=== PATIENT | female | born 1980 ===

== ENCOUNTER 2018-07-14 22:17 | Emergency (ER) | payer OTHER ==
[2018-07-14 22:46] VITALS: RESP 18
[2018-07-15] MEDS ORDERED: Sodium Chloride 0.9% 1,000 ML IV STA (00:39)
[2018-07-15 01:19] LABS: BASO # 0.1 K/uL (0.0-0.2); BASO % 0.6 % (0.0-2.0); EOS # 0.3 K/uL (0.0-0.7); EOS % 3.1 % (0.0-4.0); HEMOGLOBIN 13.2 g/dL (12.0-16.0); LYMPH # 3.2 K/uL (1.0-4.3); LYMPH % 29.8 % (20.0-40.0); MEAN CELL VOLUME 87.9 fl (81.0-99.0); MEAN CORPUSCULAR HEMOGLOBIN 29.4 pg (27.0-31.0); MEAN CORPUSCULAR HGB CONC 33.4 g/dL (33.0-37.0); MEAN PLATELET VOLUME 8.5 fl (7.2-11.7); MONO # 0.9 K/uL (0.0-0.8); NEUT # 6.4 K/uL (1.8-7.0); NEUT % 58.5 % (50.0-75.0); RBC 4.49 Mil/uL (3.80-5.20); RED CELL DISTRIBUTION WIDTH 12.6 % (11.5-14.5); WHITE BLOOD COUNT 10.9 K/uL (4.8-10.8)
[2018-07-15 01:32] LABS: ALB/GLOB RATIO 1.5 (1.0-2.1); ALBUMIN 4.2 g/dL (3.5-5.0); ALT/SGPT 34 U/L (9-52); AST/SGOT 20 U/L (14-36); BLOOD UREA NITROGEN 18 mg/dl (7-17); CALCIUM 9.5 mg/dL (8.4-10.2); GFR NON-AFRICAN AMERICAN > 60
--- NOTE | 2018-07-15 02:57 | ED PDOC ---
HPI: Headache Time Seen by Provider: 07/15/18 00:03 Chief Complaint (Nursing): Weakness/Neurological Deficit Chief Complaint (Provider): Weakness/Neurological Deficit History Per: Patient History/Exam Limitations: no limitations Onset/Duration Of Symptoms: Days (x1), Gradual (of headache) Additional Complaint(s): 37 years old female presents to ER for evaluation after she woke up this morning feeling anxious and numbness to both lower and upper extremities. Patient reports gradual onset holocephalic headache. She states she had numbness in the past which contributes to her anxiety. Patient reports taking Tylenol around 4 pm with no relief. She denies fever, light sensitivity, nausea, vomiting, neck pain, stiffness, chest pain, palpitations, shortness of breath and history of headache. PMD: None provided Past Medical History Reviewed: Historical Data, Nursing Documentation, Vital Signs Vital Signs: Last Vital Signs Temp 98 F 07/14/18 22:44 Pulse 71 07/14/18 22:44 Resp 18 07/14/18 22:44 BP 133/85 07/14/18 22:44 Pulse Ox 100 07/14/18 22:44 - Medical History PMH: Anxiety Denies: Chronic Kidney Disease - Surgical History Surgical History: No Surg Hx - Family History Family History: States: Unknown Family Hx - Social History Current smoker - smoking cessation education provided: Yes Alcohol: None Drugs: Denies - Home Medications Home Medications: Ambulatory Orders Medication Instructions Recorded Metoclopramide HCl [Reglan] 10 mg PO TID PRN #10 tablet 07/15/18 - Allergies Allergies/Adverse Reactions: Allergies Allergy/AdvReac Type Severity Reaction Status Date / Time No Known Allergies Allergy Verified 07/14/18 22:43 Review of Systems ROS Statement: Except As Marked, All Systems Reviewed And Found Negative Constitutional: Negative for: Fever Eyes: Negative for: Other (Light sensetivity) Cardiovascular: Negative for: Chest Pain, Palpitations Respiratory: Negative for: Shortness of Breath Gastrointestinal: Negative for: Nausea, Vomiting Musculoskeletal: Negative for: Neck Pain Neurological: Positive for: Weakness (to lower and upper extremities), Numbness (to lower and upper extremities), Headache (Holocephalic) Physical Exam - Reviewed Nursing Documentation Reviewed: Yes Vital Signs Reviewed: Yes - Physical Exam Appears: Positive for: Well, No Acute Distress Head Exam: Positive for: ATRAUMATIC, NORMOCEPHALIC Skin: Positive for: Normal Color, Warm, Dry Eye Exam: Positive for: Normal appearance, EOMI, PERRL ENT: Positive for: Normal ENT Inspection Neck: Positive for: Normal, Painless ROM, Supple Cardiovascular/Chest: Positive for: Regular Rate, Rhythm, Chest Non Tender. Negative for: Murmur Respiratory: Positive for: Normal Breath Sounds. Negative for: Respiratory Distress Gastrointestinal/Abdominal: Positive for: Normal Exam, Soft. Negative for: Tenderness Back: Positive for: Normal Inspection. Negative for: L CVA Tenderness, R CVA Tenderness, Vertebral Tenderness Extremity: Positive for: Normal ROM. Negative for: Pedal Edema, Swelling Neurological/Psych: Positive for: Awake, Alert, Oriented (x3), Gait (steady unassisted), Other (Cranial nerves intact) - Laboratory Results Result Diagrams: 07/15/18 01:05 07/15/18 01:05 Lab Results: Total Bilirubin 0.2 mg/dl (0.2-1.3) 07/15/18 01:05 AST 20 U/L (14-36) 07/15/18 01:05 ALT 34 U/L (9-52) 07/15/18 01:05 Alkaline Phosphatase 80 U/L (38-126) 07/15/18 01:05 Total Protein 7.0 G/DL (6.3-8.2) 07/15/18 01:05 Albumin 4.2 g/dL (3.5-5.0) 07/15/18 01:05 Globulin 2.8 gm/dL (2.2-3.9) 07/15/18 01:05 Albumin/Globulin Ratio 1.5 (1.0-2.1) 07/15/18 01:05 - ECG O2 Sat by Pulse Oximetry: 100 (RA) Pulse Ox Interpretation: Normal Medical Decision Making Medical Decision Making: Time: 38 Initial Impression: Initial Plan: --Head CT --CMP --Urine --CBC --Reglan 10 mg IVPB [address] Findings: Normal size of the ventricles and extra-axial spaces for the patient's age. Normal white matter tracts of the supratentorial brain. Normal basal ganglia and thalami. Normal brainstem. Normal cerebellum. There is no demonstrated extra-axial, intraparenchymal, or intraventricular hemorrhage. There are no findings of an acute ischemic infarction. Normal calvarium. There is no demonstrated fracture. Normal soft tissue structures. Normal visualized paranasal sinuses. IMPRESSION: Normal unenhanced CT scan of the brain. 0250 On reevaluation, patient sleeping comfortably, easily arousable and reports complete resolution of headache. Patient instructed to followup with PMD in [facility] and return to ER if symptoms worsen. Scribe Attestation: Documented by Jacey Thompson, acting as a scribe for ZARINA Cardenas. Provider Scribe Attestation: All medical record entries made by the Scribe were at my direction and personally dictated by me. I have reviewed the chart and agree that the record accurately reflects my personal performance of the history, physical exam, medical decision making, and the department course for this patient. I have also personally directed, reviewed, and agree with the discharge instructions and disposition. Disposition - Clinical Impression Clinical Impression: Headache - Patient ED Disposition Is Patient to be Admitted: No - Disposition Referrals: [facility] [Outside] Disposition Time: 02:56 Condition: IMPROVED Additional Instructions: FOLLOW UP WITH PMD FOR FURTHER EVALUATION RETURN TO ED IMMEDIATELY IF SYMPTOMS WORSEN DK SALDAÑA, thank you for letting us take care of you today. Your provider was Manjinder Mcrae MD and you were treated for NUMBNESS ON EXTREMITIES;HEADACHE. The emergency medical care you received today was directed at your acute symptoms. If you were prescribed any medication, please fill it and take as directed. It may take several days for your symptoms to resolve. Return to the Emergency Department if your symptoms worsen, do not improve, or if you have any other problems. Please contact your doctor or call one of the physicians/clinics you have been referred to that are listed on the Patient Visit Information form that is included in your discharge packet. Bring any paperwork you were given at discharge with you along with any medications you are taking to your follow up visit. Our treatment cannot replace ongoing medical care by a primary care provider outside of the emergency department. Thank you for allowing the [facility] team to be part of your care today. If you had an X-Ray or CT scan: A Radiologist will review the ED reading if any change in treatment is needed we will contact you. If you had a blood, urine, or wound culture: It will take several days for the results, if any change in treatment is needed we will contact you. If you had an STI test: It will take 48 hours for the results. Please call after 1 week if you have not heard back. Prescriptions: Metoclopramide HCl [Reglan] 10 mg PO TID PRN #10 tablet PRN Reason: headache or nausea Instructions: Headache, Adult (DC) Forms: [facility] (Amharic) Print Language: ESTONIAN
--- NOTE | 2018-07-15 03:02 | ED PDOC ---
HPI: Headache Time Seen by Provider: 07/15/18 00:03 Chief Complaint (Nursing): Weakness/Neurological Deficit Past Medical History Vital Signs: Last Vital Signs Temp 98 F 07/14/18 22:44 Pulse 71 07/14/18 22:44 Resp 18 07/14/18 22:44 BP 133/85 07/14/18 22:44 Pulse Ox 100 07/14/18 22:44 - Medical History PMH: Anxiety Denies: Chronic Kidney Disease - Home Medications Home Medications: Ambulatory Orders Medication Instructions Recorded Metoclopramide HCl [Reglan] 10 mg PO TID PRN #10 tablet 07/15/18 - Allergies Allergies/Adverse Reactions: Allergies Allergy/AdvReac Type Severity Reaction Status Date / Time No Known Allergies Allergy Verified 07/14/18 22:43 - Laboratory Results Result Diagrams: 07/15/18 01:05 07/15/18 01:05 Lab Results: Total Bilirubin 0.2 mg/dl (0.2-1.3) 07/15/18 01:05 AST 20 U/L (14-36) 07/15/18 01:05 ALT 34 U/L (9-52) 07/15/18 01:05 Alkaline Phosphatase 80 U/L (38-126) 07/15/18 01:05 Total Protein 7.0 G/DL (6.3-8.2) 07/15/18 01:05 Albumin 4.2 g/dL (3.5-5.0) 07/15/18 01:05 Globulin 2.8 gm/dL (2.2-3.9) 07/15/18 01:05 Albumin/Globulin Ratio 1.5 (1.0-2.1) 07/15/18 01:05 - ECG O2 Sat by Pulse Oximetry: 100 Disposition - Clinical Impression Clinical Impression: Headache - Patient ED Disposition Is Patient to be Admitted: No - Disposition Referrals: [facility] [Outside] Disposition: Routine/Home Disposition Time: 02:56 Condition: IMPROVED Additional Instructions: FOLLOW UP WITH PMD FOR FURTHER EVALUATION RETURN TO ED IMMEDIATELY IF SYMPTOMS WORSEN DK SALDAÑA, thank you for letting us take care of you today. Your provider was Manjinder Mcrae MD and you were treated for NUMBNESS ON EXTREMITIES;HEADACHE. The emergency medical care you received today was directed at your acute sym ptoms. If you were prescribed any medication, please fill it and take as directed. It may take several days for your symptoms to resolve. Return to the Emergency Department if your symptoms worsen, do not improve, or if you have any other problems. Please contact your doctor or call one of the physicians/clinics you have been referred to that are listed on the Patient Visit Information form that is included in your discharge packet. Bring any paperwork you were given at discharge with you along with any medications you are taking to your follow up visit. Our treatment cannot replace ongoing medical care by a primary care provider outside of the emergency department. Thank you for allowing the [facility] team to be part of your care today. If you had an X-Ray or CT scan: A Radiologist will review the ED reading if any change in treatment is needed we will contact you. If you had a blood, urine, or wound culture: It will take several days for the results, if any change in treatment is needed we will contact you. If you had an STI test: It will take 48 hours for the results. Please call after 1 week if you have not heard back. Prescriptions: Metoclopramide HCl [Reglan] 10 mg PO TID PRN #10 tablet PRN Reason: headache or nausea Instructions: Headache, Adult (DC) Print Language: BAHAMIAN
[2018-07-15 04:03] VITALS: BP 125/64; PULSE 69; TEMP 97.7; O2SAT 99
--- NOTE | 2018-07-15 07:57 | CT ---
Date of service: 07/15/2018 PROCEDURE: CT HEAD WITHOUT CONTRAST. HISTORY: headache COMPARISON: None available. TECHNIQUE: Axial computed tomography images were obtained through the head/brain without intravenous contrast. Radiation dose: Total exam DLP = 806.53 mGy-cm. This CT exam was performed using one or more of the following dose reduction techniques: Automated exposure control, adjustment of the mA and/or kV according to patient size, and/or use of iterative reconstruction technique. FINDINGS: HEMORRHAGE: No intracranial hemorrhage. BRAIN: No mass effect or edema. No atrophy or chronic microvascular ischemic changes. VENTRICLES: Unremarkable. No hydrocephalus. CALVARIUM: Unremarkable. PARANASAL SINUSES: Unremarkable as visualized. No significant inflammatory changes. MASTOID AIR CELLS: Unremarkable as visualized. No inflammatory changes. OTHER FINDINGS: None. IMPRESSION: Normal CT of the Head.
== END 2018-07-15 03:10 | disposition home or self-care (01) ==
LOC: H.ER 22:17
DX: R51 Headache (principal); F17.200 Nicotine dependence, unspecified, uncomplicated; F41.9 Anxiety disorder, unspecified
CPT/HCPCS: 70450; 80053; 81025; 85025; 96360; 99285; J2765; J7030